=== PATIENT | female | born 1965 | race Caucasian/White ===

== ENCOUNTER 2017-04-20 12:05 | Day surgery (SDC) | payer OTHER ==
[~2017-04-20] VITALS: Ht 162.6 cm; Wt 104.3 kg
[~2017-04-20 12:05] MED LIST: ALBUTEROL SULF8.5 GM IH; CIPRO500 MG PO; CLINDAMYCIN HC150 MG PO; ENDOCET 5-3251 EACH PO; FLAGYL500 MG PO; FLEXERIL10 MG PO; FOLIC ACID1 MG PO; HYDROCHLOROTH12.5 M3 PO; HYDROCODON-ACE1 EAC7 PO; IBUPROFEN800 MG PO; INDOMETHACIN50 MG PO; KEFLEX500 MG PO; LISINOPRIL20 MG PO; MEGESTROL ACETA20 MG PO; METHOTREXATE2.5 MG PO; MIRENA52 MG IY; MOBIC15 MG PO; MOBIC7.5 MG PO; NEURONTIN100 MG PO; NOHOMEMEDS; OXAYDO5 MG PO; PREDNISONE10 MG PO; PYRIDIUM200 MG PO; ROBITUSSIN AC,T10 ML PO; SENNA LAX8.6 MG PO; SYMBICORT60 INHALAT IH; TRAMADOL HCL50 MG PO; ULTRACET1 TABLET PO; ULTRAM50 MG PO; VENTOLIN HFA18 GM IH; VOLTAREN50 MG PO; ZANTAC150 MG PO; ZESTRIL40 MG PO; ZITHROMAX Z-PA250 MG PO; ZOFRAN4 MG PO
== END 2017-04-20 14:13 | disposition home or self-care (01) ==
LOC: PAIN 12:05 → SDC 13:00 → PAIN 14:13
DX: M51.16 Intervertebral disc disorders with radiculopathy, lumbar region (principal); I10 Essential (primary) hypertension; M06.9 Rheumatoid arthritis, unspecified; J44.9 Chronic obstructive pulmonary disease, unspecified; K21.9 Gastro-esophageal reflux disease without esophagitis; Z88.2 Allergy status to sulfonamides; F17.210 Nicotine dependence, cigarettes, uncomplicated
CPT/HCPCS: J1030; J2250; J3010; S0020

== ENCOUNTER 2017-04-27 08:18 | Day surgery (SDC) | payer OTHER ==
[~2017-04-27] VITALS: Ht 162.6 cm; Wt 103.8 kg
== END 2017-04-27 10:00 | disposition home or self-care (01) ==
LOC: PAIN 08:18 → SDC 09:00 → PAIN 10:00
DX: M47.26 Other spondylosis with radiculopathy, lumbar region (principal); F41.9 Anxiety disorder, unspecified; M06.9 Rheumatoid arthritis, unspecified; F17.200 Nicotine dependence, unspecified, uncomplicated; I10 Essential (primary) hypertension; K21.9 Gastro-esophageal reflux disease without esophagitis; Z68.41 Body mass index [BMI] 40.0-44.9, adult; K27.9 Peptic ulcer, site unspecified, unspecified as acute or chronic, without hemorrhage or perforation; Z88.2 Allergy status to sulfonamides; Z91.040 Latex allergy status
CPT/HCPCS: J1030; J2250; J3010; S0020

== ENCOUNTER 2017-08-17 07:06 | Day surgery (SDC) | payer OTHER ==
[~2017-08-17] VITALS: Ht 162.6 cm; Wt 108.9 kg
[~2017-08-17 07:06] MED LIST changes: +HUMIRA40 MG/0.8 SC
== END 2017-08-17 08:41 | disposition home or self-care (01) ==
LOC: PAIN 07:06 → SDC 07:30 → PAIN 07:30
DX: M47.26 Other spondylosis with radiculopathy, lumbar region (principal); M48.06 Spinal stenosis, lumbar region; M06.9 Rheumatoid arthritis, unspecified; I10 Essential (primary) hypertension; J44.9 Chronic obstructive pulmonary disease, unspecified; K21.9 Gastro-esophageal reflux disease without esophagitis; E66.01 Morbid (severe) obesity due to excess calories; Z68.41 Body mass index [BMI] 40.0-44.9, adult; F17.210 Nicotine dependence, cigarettes, uncomplicated
CPT/HCPCS: J1030; J2250; J3010; S0020

== ENCOUNTER 2017-08-24 06:59 | Day surgery (SDC) | payer OTHER ==
[~2017-08-24] VITALS: Ht 162.6 cm; Wt 108.9 kg
== END 2017-08-24 08:50 | disposition home or self-care (01) ==
LOC: PAIN 06:59 → SDC 07:30 → PAIN 08:50
DX: M47.26 Other spondylosis with radiculopathy, lumbar region (principal); M48.06 Spinal stenosis, lumbar region; I10 Essential (primary) hypertension; M06.9 Rheumatoid arthritis, unspecified; E66.01 Morbid (severe) obesity due to excess calories; F17.210 Nicotine dependence, cigarettes, uncomplicated; J44.9 Chronic obstructive pulmonary disease, unspecified; K21.9 Gastro-esophageal reflux disease without esophagitis; Z68.41 Body mass index [BMI] 40.0-44.9, adult; Z79.891 Long term (current) use of opiate analgesic
CPT/HCPCS: J1030; J2250; J3010; S0020

== ENCOUNTER 2018-03-28 11:07 | Day surgery (SDC) | payer OTHER ==
[~2018-03-28] VITALS: Ht 162.6 cm; Wt 108.9 kg
[2018-03-28] MEDS ORDERED: TRAMADOL HCL50 MG PO (11:35)
== END 2018-03-28 12:45 | disposition home or self-care (01) ==
LOC: PAIN 11:07 → SDC 11:45 → PAIN 12:45
DX: M54.12 Radiculopathy, cervical region (principal); M06.9 Rheumatoid arthritis, unspecified; Z87.891 Personal history of nicotine dependence; I10 Essential (primary) hypertension; E66.01 Morbid (severe) obesity due to excess calories; Z68.41 Body mass index [BMI] 40.0-44.9, adult; Z88.2 Allergy status to sulfonamides; Z91.040 Latex allergy status
CPT/HCPCS: J1100; J2250

== ENCOUNTER 2018-04-26 09:04 | Day surgery (SDC) | payer OTHER ==
[~2018-04-26] VITALS: Ht 162.6 cm; Wt 108.9 kg
[~2018-04-26 09:04] MED LIST changes: +NORVASC5 MG PO
== END 2018-04-26 10:17 | disposition home or self-care (01) ==
LOC: PAIN 09:04 → SDC 09:30 → PAIN 09:30
PROC: B01B1ZZ Fluoroscopy of Spinal Cord using Low Osmolar Contrast (ICD-10-PCS; principal; 2018-04-26)
PROC: 3E0R3BZ Introduction of Anesthetic Agent into Spinal Canal, Percutaneous Approach (ICD-10-PCS; principal; 2018-04-26)
PROC: 3E0R33Z Introduction of Anti-inflammatory into Spinal Canal, Percutaneous Approach (ICD-10-PCS; principal; 2018-04-26)
DX: M50.13 Cervical disc disorder with radiculopathy, cervicothoracic region (principal); M47.22 Other spondylosis with radiculopathy, cervical region; E66.01 Morbid (severe) obesity due to excess calories; Z68.41 Body mass index [BMI] 40.0-44.9, adult; I10 Essential (primary) hypertension; M54.16 Radiculopathy, lumbar region; M48.061 Spinal stenosis, lumbar region without neurogenic claudication; J44.9 Chronic obstructive pulmonary disease, unspecified; M79.7 Fibromyalgia; Z88.2 Allergy status to sulfonamides; Z79.891 Long term (current) use of opiate analgesic
CPT/HCPCS: J1100; J2250